=== PATIENT | male | born 1995 | race Caucasian/White ===

== ENCOUNTER 2017-09-12 17:24 | Emergency (ER) | payer BC ==
--- NOTE | 2017-09-12 17:32 | EDPHY ---
H & P Time Seen by Provider: 09/12/17 17:25 HPI/ROS: CHIEF COMPLAINT: Seizure HISTORY OF PRESENT ILLNESS: Patient is a 22-year-old male who presents emergency department after having a seizure while at work. Patient has had 1 seizure previously 4 years ago. He is not currently on any medication. While at work he started to have a seizure. He was lowered to the ground. He did not sustain any trauma. Patient had some"tonic colonic"movements per EMS. Patient's seizure had resolved by the time EMS arrived. The patient's mental status was initially confused but has improved in route. The patient has complained of a mild headache that is diffuse. No focal weakness or numbness. No nausea or vomiting. No visual change. Patient denies any other pain. REVIEW OF SYSTEMS: My complete review of systems is negative except as mentioned in the HPI. Past Medical/Surgical History: Includes seizure 4 years ago Past surgical history: Negative Social history: Patient denies drugs or alcohol Physical Exam: Vitals noted GENERAL: Well-appearing, in no acute distress, alert. HEENT: Eyes normal to inspection, normal pharynx, no signs of dehydration. NECK: [No thyromegaly, no lymphadenopathy, supple. RESPIRATORY: Clear to auscultation bilaterally, no rales, rhonchi or wheezing. CVS: Regular rate and rhythm, no rubs, murmurs, or gallops. ABDOMEN: Soft, nontender, nondistended, no organomegaly. BACK: Normal to inspection, no CVA tenderness. SKIN: Normal color, no rash, warm, dry. No pallor. EXTREMITIES: No pedal edema, no calf tenderness, no Homans sign or cords, no joint swelling. NEURO/PSYCH: Higher functions: Alert and Oriented x3. Normal speech and cognition. Normal mood and affect. Cranial nerves: Normal as tested. Cerebellar: Normal as tested. Good finger to nose, good [id number], normal gait. Peripheral exam: Normal motor exam. Normal sensation. Constitutional: Initial Vital Signs Temperature (C) 36.7 C 09/12/17 17:25 Heart Rate 113 H 09/12/17 17:25 Respiratory Rate 20 09/12/17 17:25 Blood Pressure 129/76 H 09/12/17 17:25 O2 Sat (%) 98 09/12/17 17:25 O2 Delivery Mode Room Air Allergies/Adverse Reactions: No Known Allergies Allergy (Unverified 09/12/17 17:33) Home Medications: Medication Instructions Recorded NK [No Known Home Meds] 09/12/17 Medical Decision Making - Diagnostics Imaging Results: Imaging Impressions Head CT 09/12/17 17:36 Impression: 1. No significant intracranial abnormality seen. If symptoms worsen, additional imaging may be necessary. Findings discussed with Monisha Irizarry M.D. at 18:32 hour, 09/12/2017. ED Course/Re-evaluation: In the emergency department I met EMS on arrival. I took report from the mercantile agent. Of note the patient's glucose is 133. Because the patient has not had a seizure for [address] and laboratory studies were ordered. I reviewed the patient's laboratory studies. White count was elevated at 13. His chemistry panel was notable for low CO2 at 10. Head CT: Please refer the dictated report. No acute disease noted. 18 40: I discussed the result with the patient. I answered all his questions. His neuro exam was nonfocal. He had no complaints. He is given warnings prior to leaving. He will follow up with Neurology. Differential Diagnosis: My differential includes but is not limited to seizure, electrolyte abnormality , sugar abnormality, subarachnoid hemorrhage, subdural hematoma, epidural hematoma, CVA, dissection, mass, malignancy - Data Points Laboratory Results: Laboratory Results 09/12/17 17:15 09/12/17 17:15 09/12/17 09/12/17 17:15 17:15 WBC 13.59 10^3/uL H 10^3/uL (3.80-9.50) RBC 5.79 10^6/uL 10^6/uL (4.40-6.38) Hgb 17.7 g/dL H g/dL (13.7-17.5) Hct 52.5 % H % (40.0-51.0) MCV 90.7 fL fL (81.5-99.8) MCH 30.6 pg pg (27.9-34.1) MCHC 33.7 g/dL g/dL (32.4-36.7) RDW 12.1 % % (11.5-15.2) Plt Count 343 10^3/uL 10^3/uL (150-400) MPV 11.1 fL fL (8.7-11.7) Neut % (Auto) Not Reported Lymph % (Auto) Not Reported [place] % (Auto) Not Reported Eos % (Auto) Not Reported Baso % (Auto) Not Reported Nucleat RBC Rel Count 0.0 % % (0.0-0.2) Absolute Neuts (auto) Not Reported Absolute Lymphs (auto) Not Reported Absolute Monos (auto) Not Reported Absolute Eos (auto) Not Reported Absolute Basos (auto) Not Reported Absolute Nucleated RBC 0.00 10^3/uL 10^3/uL (0-0.01) Immature Gran % Not Reported Seg Neutrophils % 21 % % Lymphocytes % 68 % % Monocytes % 9 % % Eosinophils % 1 % % Basophils % 1 % % Immature Gran # Not Reported Absolute Seg Neuts 2.85 10^/uL 10^/uL (1.70-6.50) Absolute Lymphocytes 9.24 10^3/uL H 10^3/uL (1.00-3.00) Absolute Monocytes 1.22 10^3/uL H 10^3/uL (0.30-0.80) Absolute Eosinophils 0.14 10^3/uL 10^3/uL (0.03-0.40) Absolute Basophils 0.14 10^3/uL H 10^3/uL (0.02-0.10) Platelet Estimate ADEQUATE (ADEQ) Smear Review By Pending Sodium 145 mEq/L mEq/L (135-145) Potassium 4.0 mEq/L mEq/L (3.5-5.2) Chloride 98 mEq/L mEq/L (97-110) Carbon Dioxide 10 mEq/l L mEq/l (22-31) Anion Gap 37 mEq/L H mEq/L (8-16) BUN 15 mg/dL mg/dL (7-23) Creatinine 1.1 mg/dL mg/dL (0.7-1.3) Estimated GFR > 60 Glucose 111 mg/dL H mg/dL (70-100) Calcium 10.3 mg/dL mg/dL (8.5-10.4) Departure - Departure Disposition: Home, Routine, Self-Care Clinical Impression: Seizure Condition: Good Instructions: Recurrent Seizures in Adults (ED) Additional Instructions: Return with repeated seizure, headache, weakness, numbness or any other concerns. You need close follow-up with Neurology. Call [facility] morning to make an appointment. Referrals: Deon Adam, DO [Medical Doctor] - 5-7 days, call for appt.
[2017-09-12 17:51] LABS: PLATELET COUNT 343 10^3/uL (150-400)
[2017-09-12 18:49] VITALS: BP 125/78
== END 2017-09-12 18:50 | disposition home or self-care (01) ==
DX: G40.909 Epilepsy, unspecified, not intractable, without status epilepticus (principal)

== ENCOUNTER → 2017-09-23 | Outpatient (CLI) | payer BC | LOC: FIMAGING 18:53 | PROVIDERS: ATTEND Psychiatry & Neurology Neurology | DX: R56.9 Unspecified convulsions (principal) ==

== ENCOUNTER → 2017-10-06 | Outpatient (CLI) | payer BC ==
--- NOTE | 2017-10-06 14:17 | CPEEG ---
[f rep st] ELECTROENCEPHALOGRAM 4-HOUR ELECTROENCEPHALOGRAM. DATE OF STUDY: 10/06/2017 INTERPRETATION: This 4-hour video EEG recording is normal. There were no potentially epileptogenic abnormalities present during the awake or sleep recordings. During the video EEG monitoring session, the patient did not have any clinical events. REPORT: This 4-hour video EEG contains 9-10 Hz alpha activity over the posterior head regions. Ther e was no abnormal activation at rest, during photic stimulation or hyperventilation. The patient had a normal hyperventilation buildup response post hyperventilation. The patient became drowsy and fel l into sustained sleep during the study. There was no abnormal activation during drowsiness, sleep, or during times of arousal. There were no clinical events recorded during the EEG monitoring session . /[id number]/[id number]
== END ==
LOC: FCPNEURO 07:40
PROVIDERS: ATTEND Psychiatry & Neurology Neurology
DX: R56.9 Unspecified convulsions (principal)